=== PATIENT | female | born 1990 | race Caucasian/White ===

== ENCOUNTER 2016-11-24 13:50 | Emergency (ER) | payer MEDICAID ==
[2016-11-24 14:54] VITALS: BP 116/65
[2016-11-24] MEDS ORDERED: HYDROmorphone HCL 1 MG/ML DISP.SYRIN ONE (14:55)
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
[2016-11-24] MEDS ORDERED: HYDROmorphone HCL 1 MG/ML DISP.SYRIN IV ONE (15:04)
== END 2016-11-24 15:24 | disposition short-term general hospital (02) ==
LOC: EDBD → ER 13:50
DX: S32.810A Multiple fractures of pelvis with stable disruption of pelvic ring, initial encounter for closed fracture (principal); S27.0XXA Traumatic pneumothorax, initial encounter; V43.52XA Car driver injured in collision with other type car in traffic accident, initial encounter; F17.210 Nicotine dependence, cigarettes, uncomplicated; Z90.49 Acquired absence of other specified parts of digestive tract

== ENCOUNTER 2017-01-05 23:36 | Emergency (ER) | payer MEDICAID ==
--- NOTE | 2017-01-06 00:17 | ERNOTE ---
Back Pain ER HPI Presenting Symptoms: other - left rib pain Time Seen by Provider: 01/06/17 00:15 Source: patient Exam Limitations: no limitations Immunizations: IMMUNIZATION HX Immunizations Up to Date Yes History of Influenza Vaccine Yes Hx Pneumococcal Vaccination No Allergies/Adverse Reactions: Allergies No Known Allergies Allergy (Verified 11/24/16 15:02) Home Medications: HOME MEDICATIONS Cyclobenzaprine HCl [Flexeril] 10 mg PO TID PRN #20 tab 01/06/17 [Last Taken Unknown] Narrative: Pt had onset of left anterior and posterior lower rib pain when she laid down to sleep tonight. Timing: Reports: constant Quality/Severity: Reports: moderate, sharpness Location of pain: Reports: mid back - (left ribs) Activities at Onset: Reports: rest Recent Injury?: Reports: no Possible Precipitating Factor: Reports: turning/bending, other - getting in and out of a wheelchair while non-weight bearing due to pelvic fracture Review of Systems - Review of Systems Constitutional: Present: no symptoms reported Respiratory: Absent: shortness of breath Cardiology: Absent: chest pain Musculoskeletal: Present: back pain - ribs, muscle pain Skin: Absent: rash Neurological: Present: no symptoms reported Endocrine: Present: no symptoms reported Hematologic/Lymphatic: Present: no symptoms reported - Patient's Past Medical History Patient History - Medical: No pertinent hx Patient History - Cardiac/Respiratory: No pertinent hx Patient History - Cancer: No Hx of Cancer Patient History - Surgical Procedures: Cholecystectomy, Other Patient History - Other: None LMP (females 10-50): 1 month LMP (Calendar): 10/24/16 - Social History Living Situations: spouse Abuse History: No History of abuse Psych History: Hx of Anxiety Smoking Status: Current every day smoker Patient requests Smoking Cessation Consult: No Initiate information on Smoking Cessation: No Alcohol Use: none Drug Use: none - Immunizations Immunizations Up to Date: Yes Hx Pneumococcal Vaccination: No History of Influenza Vaccine: Yes Physical Exam - Physical Exam General Appearance: Present: wd/wn, alert, mild distress Neck: Present: normal inspection, nontender, supple Respiratory: Present: no respiratory distress, no accessory muscle use Gastrointestinal/Abdominal: Present: nontender, soft Back Exam: Present: muscle spasm - left posterior inferior ribs (6-9) Extremity Exam: Present: normal inspection, non-tender Neurological Exam: Present: alert, oriented, no motor/sensory deficits Skin Exam: Present: normal color, warm/dry ED Progress - Vital Signs Patient's Vital Signs:: I have reviewed the patient's vital signs. Vital Signs: Vital Signs 01/05/17 23:37 Temperature 36.3 C L Pulse Rate 113 H Respiratory 20 Rate Blood Pressure 122/102 O2 Sat by Pulse 97 Oximetry - Progress/Reassessment Chief Complaint: Back Pain Departure Clinical Impression: Muscle spasm of back - Departure Disposition: Home self-care Condition: Good Instructions: Muscle Cramps and Spasms, [id number] Referrals: Patti Sanabria FNP [Primary Care Provider] - Prescriptions: Cyclobenzaprine HCl [Flexeril] 10 mg PO TID PRN #20 tab PRN Reason: MUSCLE SPASMS
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
[2017-01-06] MEDS ORDERED: CYCLOBENZAPRINE HCL 10 MG TABLET PO ONE (00:30)
[2017-01-06] MEDS ORDERED: CYCLOBENZAPRINE HCL 10 MG TABLET ONE (00:34)
[2017-01-06 01:27] VITALS: BP 104/62
== END 2017-01-06 01:25 | disposition home or self-care (01) ==
LOC: ER 23:36
DX: M62.830 Muscle spasm of back (principal); Z72.0 Tobacco use

== ENCOUNTER 2017-02-17 07:37 | Emergency (ER) | payer MEDICAID ==
[2017-02-17 08:32] LABS: Hematocrit 42.2 % (37.0-47.0); Hemoglobin 14.2 gm/dL (12.5-16.0); Mean Cell Volume 86.3 fl (78-100); Mean Corpuscular Hgb Conc 33.6 g/dl (32-36); Mean Platelet Volume 8.8 fl (6.0-9.5); Neutrophil # 6.6 K/mm3 (1.3-6.0); Platelet Count 342 K/mm3 (150-450); Red Blood Count 4.89 M/mm3 (4.2-5.4); Red Cell Distribution Width 12.3 % (11.5-14.0); White Blood Count 10.6 K/mm3 (4.0-10.5)
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
[2017-02-17 08:47] VITALS: BP 120/84
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
[2017-02-17 08:49] LABS: Albumin * 3.6 gm/dl (3.4-5.0); Anion Gap 13.4 mmol/L (6.8-13.8); BUN/Creatinine Ratio 7.9 (9.0-21.6); Bilirubin, Total 0.7 mg/dL (0.0-1.1); Ca. Corrected For Albumin 9.4 mg/dL (8.4-10.2); Calcium * 9.4 mg/dL (7.9-10.9); Carbon Dioxide 27.4 mmol/L (24-32.6); Potassium 3.8 mmol/L (3.4-4.6); Total Protein 7.7 gm/dL (6.2-8.2)
== END 2017-02-17 08:49 | disposition home or self-care (01) ==
LOC: ER 07:37
DX: K02.9 Dental caries, unspecified (principal); F17.210 Nicotine dependence, cigarettes, uncomplicated

== ENCOUNTER 2017-07-28 17:47 | Emergency (ER) | payer MEDICAID ==
[2017-07-28 17:58] VITALS: BP 133/89
--- NOTE | 2017-07-28 18:35 | ERNOTE ---
Time Seen by Provider: 07/28/17 18:08 Stated Complaint: COUGH, HEADACHE, NAUSEA Presenting Symptoms:: cough Source: patient Exam Limitations: no limitations Immunizations: IMMUNIZATION HX Immunizations Up to Date Yes History of Influenza Vaccine No Hx Pneumococcal Vaccination No Allergies/Adverse Reactions: Allergies No Known Allergies Allergy (Verified 07/28/17 17:58) Home Medications: HOME MEDICATIONS Acetaminophen with Codeine [Tylenol with Codeine #3 Tablet] 1 each PO Q4H PRN # 20 tab 07/28/17 [Last Taken Unknown] Azithromycin [Zithromax] 250 mg PO DAILY #6 tablet 07/28/17 [Last Taken Unknown] - History of Present Ilness Narrative: Patient presents with a cough and short of breath. She states this is been ongoing for the past week or 2 she been trying to treat it at home with children 's cough medicine without success. She rates the symptoms have at least moderate in severity. Timing: constant Severity: moderate Frequency/Possible Cause: Reports: occasional episodes, other - former smoker Modifying Factors - Improves: Reports: nothing Modifying Factors - Worsens: Reports: nothing Associated Symptoms: Reports: denies symptoms Prior Treatment: Reports: recently seen, treated by physician Review of Systems - Review of Systems Constitutional: Present: See HPI EYE: Present: no symptoms reported ENT: Present: no symptoms reported Respiratory: Present: cough Cardiology: Present: no symptoms reported Gastrointestinal/Abdominal: Present: no symptoms reported Genitourinary: Present: no symptoms reported Musculoskeletal: Present: no symptoms reported Skin: Present: no symptoms reported Neurological: Present: no symptoms reported Endocrine: Present: no symptoms reported Hematologic/Lymphatic: Present: no symptoms reported Psych: Present: no symptoms reported - Patient's Past Medical History Patient History - Medical: No pertinent hx Patient History - Cardiac/Respiratory: No pertinent hx Patient History - Cancer: No Hx of Cancer Patient History - Surgical Procedures: Cholecystectomy, Other, Orthopedic Patient History - Other: None LMP (females 10-50): LMP (Calendar): 05/04/17 - Social History Living Situations: home Abuse History: No History of abuse Psych History: Hx of Anxiety Alcohol Use: none Drug Use: none - Immunizations Immunizations Up to Date: Yes Hx Pneumococcal Vaccination: No History of Influenza Vaccine: No Physical Exam - Physical Exam General Appearance: Present: wd/wn, alert, moderate distress Head Exam: Present: normal inspection Eye Exam: Normal inspection: bilateral, PERRL: bilateral Ears, Nose, Throat: Present: normal ENT inspection, H, normal pharynx Neck: Present: normal inspection, nontender Respiratory: Present: no accessory muscle use, chest nontender, respiratory distress, wheezing, other - with coarse breath sounds throughout Cardiovascular/Chest: Present: regular rate, rhythm, no murmur, normal peripheral pulses Gastrointestinal/Abdominal: Present: normal bowel sounds, nontender, nondistended, soft, no organomegaly Rectal Exam: Present: deferred Back Exam: Present: normal inspection, normal range of motion Extremity Exam: Present: normal inspection, non-tender, no edema, normal range of motion Neurological Exam: Present: alert, oriented, normal mood/affect Skin Exam: Present: normal color, warm/dry Lymphatic Exam: Present: no adenopathy ED Progress - Vital Signs Patient's Vital Signs:: I have reviewed the patient's vital signs. Vital Signs: Vital Signs 07/28/17 07/28/17 17:53 18:04 Temperature 36.4 C L Pulse Rate 119 H 119 H Respiratory 16 Rate Blood Pressure 133/89 O2 Sat by Pulse 98 Oximetry - Progress/Reassessment Chief Complaint: Upper Respiratory Symptoms Plan - Plan Plan: Patient will need to be placed on an antibiotic, albuterol and some from a cough medicine that is safe in . Patient will follow-up with her OB within 1 week. I discussed the use of Tylenol No. [address] Jain and he stated that would be all right. He suggests the patient call the office for an appointment and he will see her within a week. Departure - Departure Clinical Impression: Bronchitis Disposition: Home self-care Condition: Good Instructions: Acute Bronchitis, [id number] Additional Instructions: Call Dr. Jain for appointment. Referrals: Patti Sanabria FNP [Primary Care Provider] - Ghanshyam Jain DO [Staff Physician] - Prescriptions: Acetaminophen with Codeine [Tylenol with Codeine #3 Tablet] 1 each PO Q4H PRN # 20 tab PRN Reason: Cough Azithromycin [Zithromax] 250 mg PO DAILY #6 tablet
== END 2017-07-28 18:44 | disposition home or self-care (01) ==
LOC: ER 17:47
DX: J40 Bronchitis, not specified as acute or chronic (principal); Z33.1 Pregnant state, incidental; Z3A.12 12 weeks gestation of pregnancy

== ENCOUNTER 2018-02-08 02:20 | Inpatient (IN) | payer MEDICAID ==
[2018-02-08] MEDS ORDERED: diphenhydrAMINE HCL 50 MG CAPSULE PO PRN (04:54)
[2018-02-08] MEDS ORDERED: OXYTOCIN/DEXTROSE 5%-WATER 30 UNITS/500 ML BAG IV ONE ×2 (04:56→11:56)
[2018-02-08] MEDS: RINGER'S SOLUTION,LACTATED 1,000 ML IV ONE ×2 (05:15→07:06)
[2018-02-08] MEDS ORDERED: ONDANSETRON HCL/PF 2 MG/ML VIAL IV PRN (06:00)
[2018-02-08] MEDS ORDERED: BUPIVACAINE HCL/0.9 % NACL/PF 250 ML EP PRN (06:00)
[2018-02-08] MEDS ORDERED: NALOXONE HCL 1 MG/1 ML SYRG IV PRN (06:00)
[2018-02-08] MEDS ORDERED: fentaNYL CITRATE/PF 50 MCG/ML AMPUL IT SCH (06:00)
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
--- NOTE | 2018-02-08 07:19 | OR ---
Anesthesia Procedure Note - Anesthesia Procedure Note Date of Service: 02/08/18 Narrative: 02/08/18 07:12 ANESTHESIA PROCEDURE NOTE Date of Procedure: 02/08/2018 Time of procedure: 6:35 AM. Performed by: MITCHEL Nascimento CRNA, MSN [employer] Supervisor: Zuleima Cardona RN. Preprocedure diagnosis: Active labor, labor pain. Post procedure diagnosis: Same. Procedure:Epidural for labor analgesia L34. Indications: Labor pain. Findings: See below. Details of the procedure: The patient is quite animated in her descriptions complaints of much itching prior to the procedure. She had just received Benadryl by mouth was very distracted by pruritus that she had experienced since changing her laundry detergent. The patient was placed on the side of the bed in sitting positionand prepped with DuraPrep then draped in a sterile fashion. Lidocaine 1% was infiltrated to the skin and subcutaneous tissues at the level of the L4 5 interspace. She appeared quite animated with injection of local anesthesia spinal, continuing to moan after the local needle was removed. An 18-gauge Touhy needle was used to approach the epidural space with loss of resistance technique. Once loss of resistance was achieved a 27-gauge spinal needle was passed through the epidural needle and CSF was contacted. After CSF returned, 20 mcg of fentanyl was injected and in the spinal needle was removed the epidural catheter was then threaded approximately 4 cm and the epidural needle was removed. After aspiration it was evident that I was returning CSF. The catheter was then removed and using the same technique at the L3 4 level catheter was threaded without issue. After careful aspiration no fluid was returned. The catheter was taped in place and after careful aspiration 3 mL of 1.5% lidocaine with 1-200,000 epinephrine was injected without change in maternal heart rate or sensorium. The patient was informed of the possibility of post spinal headache. EBL: Minimal. Fluids: N/A. Specimen: N/A. Post procedure condition: The patient tolerated the procedure well with good relief. No complications were noted. Thank you for this consultation. Phill Sanchez CRNA, ARNP, MSN
--- NOTE | 2018-02-08 09:04 | PN ---
Progess Note - Interim Date: 02/08/18 Time: 08:59 Narrative: 02/08/18 08:59 Patient comfortable with epidural Vital signs stable. FHT: 130 baseline, reassuring Contractions q re-5 min Cervix: 6/80/-2, AROM-clear at 0720 Impression: Intrauterine at 40 1/7 weeks in labor Plan: Continue present plan. Pitocin augmentation if necessary
[2018-02-08] MEDS ORDERED: oxyCODONE HCL/ACETAMINOPHEN 1 TAB TABLET PO PRN ×2 (11:56)
[2018-02-08] MEDS ORDERED: BENZOCAINE/MENTHOL 81 SPRAY CAN TP PRN (11:56)
[2018-02-08] MEDS ORDERED: HYDROCORTISONE 30 APPL TUBE TP PRN (11:56)
[2018-02-08] MEDS ORDERED: GLYCERIN/WITCH HAZEL LEAF 40 APPL BOX TP PRN (11:56)
[2018-02-08] MEDS ORDERED: SENNOSIDES 8.6 MG TABLET PO PRN (11:56)
[2018-02-08] MEDS ORDERED: BISACODYL 10 MG SUPP.RECT RC PRN (11:56)
--- NOTE | 2018-02-08 11:58 | OR ---
Operative Report - Dictated Report Narrative: Spontaneous vaginal delivery of viable female at 11:00 on 02/08/2018 with Apgars 8 and 9, weighing 3102 g in DELGADO position with nuchal cord 4. Cord clamping delayed approximately 1 minute Placenta delivered complete, intact, with three vessel cord Estimated blood loss: 100 mL Lacerations: None
[2018-02-08] MEDS: IBUPROFEN 800 MG TABLET PO PRN (20:05)
[2018-02-09] MEDS: DOCUSATE SODIUM 100 MG CAPSULE PO SCH ×3 (00:27→20:49)
[2018-02-09] MEDS: IBUPROFEN 800 MG TABLET PO PRN ×2 (05:59→12:53)
--- NOTE | 2018-02-09 14:49 | PN ---
Subjective - Date and Time Seen Date: 02/09/18 Time: 14:49 Objective - Vitals Vitals: Last Vital Signs Temp 36.6 C 02/09/18 09:35 Pulse 90 02/09/18 09:35 Resp 20 02/09/18 09:35 BP 127/96 02/09/18 09:35 Pulse Ox 100 02/09/18 09:35 Patient denies complaints. Lochia wnl Abdomen - soft, nontender Uterus - firm, at umbilicus - 1 No calf tenderness Impression: day #1 - s/p spontaneous vaginal delivery. Plan: Continue routine care Cauti Physician Documentation - Urinary Catheter Management Urethral ([place]) Date of Insertion: 02/08/18 Time of Insertion: 07:30 Date of Removal: 02/08/18 Time of Removal: 10:50
[2018-02-10] MEDS: IBUPROFEN 800 MG TABLET PO PRN (02:05)
[2018-02-10 08:55] VITALS: BP 117/84
[2018-02-10] MEDS: DOCUSATE SODIUM 100 MG CAPSULE PO SCH (08:57)
== END 2018-02-10 12:12 | disposition home or self-care (01) | DRG 775 ==
LOC: OBCLINIC 02:20 → OB 04:52
PROVIDERS: ADMIT Obstetrics & Gynecology; ATTEND Obstetrics & Gynecology
PROC: 10E0XZZ Delivery of Products of Conception, External Approach (ICD-10-PCS; principal; 2018-02-08)
PROC: 10907ZC Drainage of Amniotic Fluid, Therapeutic from Products of Conception, Via Natural or Artificial Opening (ICD-10-PCS; 2018-02-08)
PROC: 4A1HXCZ Monitoring of Products of Conception, Cardiac Rate, External Approach (ICD-10-PCS; 2018-02-08)
PROC: 00HU33Z Insertion of Infusion Device into Spinal Canal, Percutaneous Approach (ICD-10-PCS; 2018-02-08)
DX: O69.81X0 Labor and delivery complicated by cord around neck, without compression, not applicable or unspecified (principal); O99.334 Smoking (tobacco) complicating childbirth; F17.210 Nicotine dependence, cigarettes, uncomplicated; Z3A.40 40 weeks gestation of pregnancy; Z37.0 Single live birth